=== PATIENT | male | born 1975 | race Native Hawaiian/Other Pacific Islander ===

== ENCOUNTER 2021-06-14 05:31 | Emergency (ER) | payer OTHER ==
[~2021-06-14] VITALS: Ht 175.3 cm; Wt 84.4 kg
[2021-06-14 07:13] LABS: PLATELET COUNT 122 K/uL (142-355)
[2021-06-14 07:20] LABS: POTASSIUM 3.8 mmol/L (3.6-5.2)
[2021-06-14 11:35] VITALS: BP 131/85; TEMP 98
== END 2021-06-14 11:35 | disposition home or self-care (01) ==
LOC: ED 05:31
PROVIDERS: Emergency Medicine Emergency Medical Services
DX: U07.1 COVID-19 (principal); J12.82 Pneumonia due to coronavirus disease 2019; E86.0 Dehydration; R11.2 Nausea with vomiting, unspecified; R19.7 Diarrhea, unspecified
CPT/HCPCS: 36415; 80053; 81000; 85027; 87040; 87502; 87635; 96360; 96365; 96375; 96376; 99284; J1100; J1885; J1956; J2405; U0003